=== PATIENT | female | born 1990 | race African-American/Black ===

== ENCOUNTER 2016-12-21 19:05 | Emergency (ER) | payer OTHER ==
[2016-12-21 19:09] VITALS: BP 129/70; PULSE 74; TEMP 98; BMI 24.9
--- NOTE | 2016-12-21 20:03 | PDOC ---
[id number] CYST/PAIN, ACUTE Past History - Past Medical History Allergies/Adverse Reactions: Allergies Allergy/AdvReac Type Severity Reaction Status Date / Time No Known Allergies Allergy Verified 12/21/16 19:06 Home Medications: Ambulatory Orders NK [No Known Home Medication] 04/12/15 - Psycho/Social/Smoking Cessation Hx Anxiety: No Suicidal Ideation: No Smoking History: Never smoked Have you smoked in the past 12 months: No Information on smoking cessation initiated: No Hx Alcohol Use: No Drug/Substance Use Hx: No Substance Use Type: None *Physical Exam - Vital Signs Last Vital Signs Temp Pulse Resp BP Pulse Ox 98 F 74 18 129/70 100 12/21/16 19:07 12/21/16 19:07 12/21/16 19:07 12/21/16 19:07 12/21/16 19:07 ED Treatment Course - LABORATORY CBC & Chemistry Diagram: 12/21/16 20:31 12/21/16 20:31 Medical Decision Making - Medical Decision Making 12/23/16 03:51 please note this pt was seen assessed and managed by nurse practitioner and I agree with his assessment and management of this case *DC/Admit/Observation/Transfer Diagnosis at time of Disposition: Abdominal pain - Discharge Dispostion Disposition: HOME Condition at time of disposition: Unchanged/Unknown - Patient Instructions Printed Discharge Instructions: DI for Abdominal Pain-Adult Additional Instructions: Follow up with your primary care provider as needed. If you change your mind return for further evaluation. Print Language: MONTSERRATIAN - Post Discharge Activity Work/School Note: Back to Work
[2016-12-21 20:25] LABS: URINE APPEARANCE CLEAR; URINE BILIRUBIN NEGATIVE (NEGATIVE); URINE BLOOD NEGATIVE (NEGATIVE); URINE COLOR STRAW; URINE GLUCOSE (UA) NEGATIVE (NEGATIVE); URINE KETONE NEGATIVE (NEGATIVE); URINE LEUK ESTERASE NEGATIVE (NEGATIVE); URINE NITRITE NEGATIVE (NEGATIVE); URINE PROTEIN NEGATIVE (NEGATIVE); URINE UROBILINOGEN NEGATIVE E.U./dl (0.2-1.0)
--- NOTE | 2016-12-21 20:27 | PDOC ---
History of Present Illness - General Chief Complaint: Pain Stated Complaint: CYST/PAIN, ACUTE Time Seen by Provider: 12/21/16 20:06 History Source: Patient Exam Limitations: No Limitations - History of Present Illness Travel History: No Initial Comments: 12/21/16 20:22 26yo Female patient w/ PmHx: Vacuum assisted () presents to ED with multiple complaints of Cyst to left wrist and right lower pelvic pain which began at 5pm today. Patient states having [facility] She reports LNMP: December 01 (Mirena ). Denies n/v/d, fever, change in appetite, CP, Back pain, Diff breathing or any other complaints at this time. PCP- None. Timing/Duration: reports: constant Quality: reports: moderate, sharpness Abdominal Pain Onset Location: reports: RUQ Pain Radiation: reports: no radiation Activities at Onset: reports: none Treatment Prior to Arrive: worse with: analgesics, antacids, cold pack, heat, laxative, enema, other Aggravating Factors: worse with: None, Defecation, Eating, Emotional upset, Exertion, Cataract, Movement, Voiding, Change in position Alleviating Factors: worse with: None, Belching, Shallow Breathing, Defecation, Eating, Holding Breath, Passing Gas, Change in Position, Rest, Voiding, Vomiting Past History - Travel Traveled outside of the country in the last 30 days: No Close contact w/someone who was outside of country & ill: No - Past Medical History Allergies/Adverse Reactions: Allergies Allergy/AdvReac Type Severity Reaction Status Date / Time No Known Allergies Allergy Verified 12/21/16 19:06 Home Medications: Ambulatory Orders NK [No Known Home Medication] 04/12/15 - Psycho/Social/Smoking Cessation Hx Anxiety: No Suicidal Ideation: No Smoking History: Never smoked Have you smoked in the past 12 months: No Information on smoking cessation initiated: No Hx Alcohol Use: No Drug/Substance Use Hx: No Substance Use Type: None Review of Systems - Review of Systems Able to Perform ROS?: Yes Is the patient limited Icelandic proficient: No Constitutional: No: Chills, Fever, Loss of Appetite, Malaise Respiratory: No: Cough, Orthopnea, Shortness of Breath, Stridor, Wheezing Cardiac (ROS): No: Chest Pain, Lightheadedness, Palpitations, Syncope, Chest Tightness ABD/GI: Yes: Abdominal cramping (Right pelvic region). No: Diarrhea, Nausea, Poor Appetite, Poor Fluid Intake, Rectal Bleeding, Vomiting : No: Dysuria, Discharge, Frequency, Flank Pain, Hematuria, Pain, Urgency Musculoskeletal: No: Back Pain Integumentary: No: Bruising, Erythema, Pruritus, Rash, Sweating Neurological: No: Headache, Numbness, Seizure, Weakness, Ataxia, Dizziness All Other Systems: Reviewed and Negative *Physical Exam - Vital Signs Last Vital Signs Temp Pulse Resp BP Pulse Ox 98 F 74 18 129/70 100 12/21/16 19:07 12/21/16 19:07 12/21/16 19:07 12/21/16 19:07 12/21/16 19:07 - Physical Exam General Appearance: Yes: Nourished, Appropriately Dressed. No: Apparent Distress, Mild Distress, Moderate Distress, Severe Distress Neck: positive: Trachea midline, Normal Thyroid, Supple. negative: Decreased range of motion, Stridor, Lymphadenopathy (R), Lymphadenopathy (L) Respiratory/Chest: positive: Lungs Clear, Normal Breath Sounds. negative: Chest Tender, Respiratory Distress, Accessory Muscle Use, Labored Respiration, Rapid RR, Rhonchi, Stridor, Wheezing Cardiovascular: positive: Regular Rhythm, Regular Rate. negative: Edema, JVD, Murmur Gastrointestinal/Abdominal: positive: Normal Bowel Sounds, Tender, Soft, Tenderness. negative: Distended, Guarding, Rebound (Right pelvic region on deep palpation) Musculoskeletal: positive: Normal Inspection. negative: CVA Tenderness Extremity: positive: Normal Capillary Refill, Normal Inspection, Normal Range of Motion Integumentary: positive: Normal Color, Dry, Warm Neurologic: positive: lead esthetician II-XII NML intact, Fully Oriented, Alert, Normal Mood/ Affect, Normal Response, Motor Strength 5/5 ED Treatment Course - LABORATORY CBC & Chemistry Diagram: 12/21/16 20:31 12/21/16 20:31 Progress Note - Progress Note Progress Note: Patient states she is unable to wait for her results. She reports she has work in the morning and needs to leave. Patient stated if her symptoms become severe she will return but needs to go at this time. Note: CMP machine is down during this time per lab. *DC/Admit/Observation/Transfer Diagnosis at time of Disposition: Abdominal pain Qualifiers: Abdominal location: left lower quadrant Qualified Code(s): R10.32 - Left lower quadrant pain - Discharge Dispostion Disposition: HOME Condition at time of disposition: Unchanged/Unknown Admit: No - Patient Instructions Printed Discharge Instructions: DI for Abdominal Pain-Adult Additional Instructions: Follow up with your primary care provider as needed. If you change your mind return for further evaluation. Print Language: BURMESE - Post Discharge Activity Work/School Note: Back to Work
[2016-12-21 20:54] LABS: BASOPHIL 0.6 % (0-2.0); EOSINOPHIL 1.3 % (0-4.5); MCH 30.6 pg (25.7-33.7); MCHC 32.7 g/dl (32.0-36.0); MEAN CELL VOLUME 93.6 fl (80-96); MEAN PLT VOLUME 8.5 fl (7.5-11.1); NEUTROPHILS 50.3 % (42.8-82.8); PLATELET COUNT 329 K/MM3 (134-434); RDW 13.4 % (11.6-15.6); WHITE BLOOD COUNT 7.9 K/mm3 (4.0-10.0)
[2016-12-21 23:26] LABS: ALBUMIN 3.9 g/dl (3.4-5.0); ALK PHOS 99 U/L (45-117); AMYLASE 71 U/L (25-115); ANION GAP 10 (8-16); BILIRUBIN,TOTAL 0.3 mg/dL (0.2-1.0); CALCIUM 9.5 mg/dL (8.5-10.1); CO2 25 mmol/L (21-32); COCKROFT - GAULT 127.5595; CREATININE 0.7 mg/dL (0.55-1.02); GLUCOSE,RANDOM 99 mg/dL (74-106); SGOT/AST 15 U/L (15-37); SGPT/ALT 17 U/L (12-78); TOT PROT 7.6 g/dl (6.4-8.2)
== END 2016-12-21 23:08 | disposition home or self-care (01) ==
LOC: JER 19:05
DX: R10.32 Left lower quadrant pain (principal)
CPT/HCPCS: 36415; 80053; 81003; 82150; 83690; 84703; 85025; 87086; 87491; 87591; 99283-25

== ENCOUNTER 2016-12-25 17:21 | Emergency (ER) | payer OTHER ==
[2016-12-25 17:35] VITALS: BP 120/61; PULSE 80; TEMP 98.1; BMI 24.9
--- NOTE | 2016-12-25 19:47 | PDOC ---
History of Present Illness - General Chief Complaint: Pain Stated Complaint: LOWER ABD PAIN History Source: Patient Exam Limitations: No Limitations - History of Present Illness Travel History: No Initial Comments: 12/25/16 19:45 26-year-old female without any past medical hx presents to the ER complaining lower right suprapubic discomfort 4 days without nausea/vomiting, feverchills , diarrhea, abdominal pains, flank pains, urinary symptoms: Frequency/urgency/ hesitancy, hematuria. Patient says she presented to the emergency department 4 days ago for ganglionic cyst to her left hand. She had blood work and U done which or benign.. Patient's discomfort is described as 2/10 dull nonradiating intermittent discomfort. There are no alleviating or exacerbating factors.\ LMP 12/01/2016 12/25/16 23:17 Timing/Duration: reports: intermittent Abdominal Pain Onset Location: reports: suprapubic Pain Radiation: reports: no radiation Past History - Past Medical History Allergies/Adverse Reactions: Allergies Allergy/AdvReac Type Severity Reaction Status Date / Time No Known Allergies Allergy Verified 12/25/16 17:30 Home Medications: Ambulatory Orders NK [No Known Home Medication] 04/12/15 Other medical history: none - Psycho/Social/Smoking Cessation Hx Anxiety: No Suicidal Ideation: No Smoking History: Never smoked Have you smoked in the past 12 months: No Information on smoking cessation initiated: No Hx Alcohol Use: No Drug/Substance Use Hx: No Substance Use Type: None Review of Systems - Review of Systems Able to Perform ROS?: Yes Comments:: 12/25/16 20:51 12/25/16 19:45 CONSTITUTIONAL: Absent: fever, chills, diaphoresis, generalized weakness, malaise, loss of appetite HEENT: Absent: rhinorrhea, nasal congestion, throat pain, throat swelling, difficulty swallowing, mouth swelling, ear pain, eye pain, visual Changes CARDIOVASCULAR: Absent: chest pain, loss of consciousness, palpitations, irregular heart rate, peripheral edema RESPIRATORY: Absent: cough, shortness of breath, dyspnea with exertion, orthopnea, wheezing, stridor, hemoptysis GASTROINTESTINAL: right supra pubic pain on deep palp Absent:abdominal distension, nausea, vomiting, diarrhea, constipation, melena, hematochezia GENITOURINARY: Absent: dysuria, frequency, urgency, hesitancy, hematuria, flank pain, genital pain MUSCULOSKELETAL: Absent: myalgia, arthralgia, joint swelling SKIN: Absent: rash, itching, pallor HEMATOLOGIC/IMMUNOLOGIC: Absent: easy bleeding, easy bruising, lymphadenopathy, frequent infections ENDOCRINE: Absent: unexplained weight gain, unexplained weight loss, heat intolerance, cold intolerance NEUROLOGIC: Absent: headache, focal weakness or paresthesias, dizziness, unsteady gait, seizure, mental status changes, bladder or bowel incontinence PSYCHIATRIC: Absent: anxiety, depression, suicidal or homicidal ideation, hallucinations. Is the patient limited Italian proficient: No *Physical Exam - Vital Signs Last Vital Signs Temp Pulse Resp BP Pulse Ox 98.1 F 80 18 120/61 100 12/25/16 17:31 12/25/16 17:31 12/25/16 17:31 12/25/16 17:31 12/25/16 17:31 - Physical Exam Comments: 12/25/16 19:45 GENERAL: Well developed, well nourished. Awake and alert. No acute distress. HEENT: Normocephalic, atraumatic. PERRLA, EOMI. No conjunctival pallor. Sclera are non- icteric. Moist mucous membranes. Oropharynx is clear. NECK: Supple. Full ROM. No JVD. Carotid pulses 2+ and symmetric, without bruits. No thyromegaly. No lymphadenopathy. CARDIOVASCULAR: Regular rate and rhythm. No murmurs, rubs, or gallops. Distal pulses are 2+ and symmetric. PULMONARY: No evidence of respiratory distress. Lungs clear to auscultation bilaterally. No wheezing, rales or rhonchi. ABDOMINAL: Soft. Non-tender. Non-distended. No rebound or guarding. No organomegaly. Normoactive bowel sounds. MUSCULOSKELETAL Normal range of motion at all joints. No bony deformities or tenderness. No CVA tenderness. EXTREMITIES: No cyanosis. No clubbing. No edema. No calf tenderness. SKIN: Warm and dry. Normal capillary refill. No rashes. No jaundice. NEUROLOGICAL: Alert, awake, appropriate. Cranial nerves 2-12 intact. No deficits to light touch and temperature in face, upper extremities and lower extremities. No motor deficits in the in face, upper extremities and lower extremities. Normoreflexic in the upper and lower extremities. Normal speech. Toes are down- going bilaterally. Gait is normal without ataxia. PSYCHIATRIC: Cooperative. Good eye contact. Appropriate mood and affect. 12/25/16 23:15 There is absolutely no abdominal pain on deep palpation. ED Treatment Course - LABORATORY CBC & Chemistry Diagram: 12/25/16 20:48 12/25/16 20:48 - RADIOLOGY Radiograph Interpretation: 12/25/16 20:57 transvaginal US *DC/Admit/Observation/Transfer Diagnosis at time of Disposition: Ovarian cyst - Discharge Dispostion Disposition: HOME Condition at time of disposition: Stable Admit: No - Referrals Referrals: Earl Cortez MD [Staff Physician] - - Patient Instructions Printed Discharge Instructions: Ovarian Cyst - Post Discharge Activity Work/School Note: Back to Work
[2016-12-25 21:24] LABS: BASOPHIL 0.4 % (0-2.0); EOSINOPHIL 1.3 % (0-4.5); MCH 30.6 pg (25.7-33.7); MCHC 32.9 g/dl (32.0-36.0); MEAN CELL VOLUME 92.8 fl (80-96); MEAN PLT VOLUME 9.1 fl (7.5-11.1); PLATELET COUNT 321 K/MM3 (134-434); RDW 13.5 % (11.6-15.6); WHITE BLOOD COUNT 9.2 K/mm3 (4.0-10.0)
[2016-12-25 21:26] LABS: URINE APPEARANCE CLEAR; URINE BILIRUBIN NEGATIVE (NEGATIVE); URINE BLOOD NEGATIVE (NEGATIVE); URINE COLOR LTYELLOW; URINE GLUCOSE (UA) NEGATIVE (NEGATIVE); URINE KETONE NEGATIVE (NEGATIVE); URINE LEUK ESTERASE NEGATIVE (NEGATIVE); URINE NITRITE NEGATIVE (NEGATIVE); URINE PROTEIN NEGATIVE (NEGATIVE); URINE UROBILINOGEN NEGATIVE E.U./dl (0.2-1.0)
[2016-12-25 21:49] LABS: ALK PHOS 105 U/L (45-117); ANION GAP 7 (8-16); BILIRUBIN,TOTAL 0.3 mg/dL (0.2-1.0); CALCIUM 9.4 mg/dL (8.5-10.1); CO2 28 mmol/L (21-32); CREATININE 0.9 mg/dL (0.55-1.02); GLUCOSE,RANDOM 72 mg/dL (74-106); SGOT/AST 18 U/L (15-37); SGPT/ALT 19 U/L (12-78); TOT PROT 7.8 g/dl (6.4-8.2)
== END 2016-12-25 23:46 | disposition home or self-care (01) ==
LOC: JER 17:21
DX: N83.201 Unspecified ovarian cyst, right side (principal)
CPT/HCPCS: 36415; 76830-TC; 80053; 81003; 84703; 85025; 99281-25

== ENCOUNTER 2017-03-13 14:33 | Emergency (ER) | payer OTHER ==
[2017-03-13 14:38] VITALS: BP 125/68; PULSE 77; TEMP 98.1; BMI 24.9
--- NOTE | 2017-03-13 15:04 | PDOC ---
History of Present Illness - General Chief Complaint: Pain Stated Complaint: RT PELVIC PAIN Time Seen by Provider: 03/13/17 15:03 - History of Present Illness Initial Comments: 26 year old female with PMH of recent IUD placement with history of right ovarian cyst presenting with bilateral pelvic pain. The bilateral pelvic pain started two weeks ago and has been consistent since. She describes the pain as a sharp non-radiating pain that has no exacerbating or relieving factors. Her LMP was 03/01/17 but was only a slight episode of spotting. She is also admitting to some recent nausea with nipple tenderness. She denies vaginal discharge, dysuria, or dyspareunia. Denies fevers, chills, nausea, vomiting, diarrhea, constipation, or other sick symptoms. 03/13/17 16:22 03/13/17 18:06 Past History - Past Medical History Allergies/Adverse Reactions: Allergies Allergy/AdvReac Type Severity Reaction Status Date / Time No Known Allergies Allergy Verified 03/13/17 14:35 Home Medications: Ambulatory Orders NK [No Known Home Medication] 04/12/15 - Psycho/Social/Smoking Cessation Hx Anxiety: No Suicidal Ideation: No Smoking History: Never smoked Have you smoked in the past 12 months: No Information on smoking cessation initiated: No Hx Alcohol Use: No Drug/Substance Use Hx: No Substance Use Type: None Review of Systems - Review of Systems Constitutional: No: Chills, Diaphoresis, Fever HEENTM: No: Eye Pain, Blurred Vision, Recent change in vision Respiratory: No: Cough, Orthopnea, Shortness of Breath Cardiac (ROS): No: Chest Pain, Edema ABD/GI: Yes: Nausea. No: Abdominal Distended, Constipated, Diarrhea, Vomiting : Yes: Pain. No: Burning, Dysuria, Discharge, Incontinence, Lesions *Physical Exam - Vital Signs Last Vital Signs Temp Pulse Resp BP Pulse Ox 98.1 F 77 18 125/68 100 03/13/17 14:36 03/13/17 14:36 03/13/17 14:36 03/13/17 14:36 03/13/17 14:36 - Physical Exam General Appearance: Yes: Nourished, Appropriately Dressed. No: Apparent Distress HEENT: positive: EOMI, JAMMIE, Normal Voice Neck: positive: Trachea midline, Normal Thyroid. negative: Tender Respiratory/Chest: positive: Lungs Clear, Normal Breath Sounds. negative: Chest Tender, Respiratory Distress Cardiovascular: positive: S1, S2. negative: Regular Rhythm, Regular Rate, Edema Female Pelvic Exam: positive: normal external exam. negative: discharge, lesions Gastrointestinal/Abdominal: positive: Normal Bowel Sounds, Flat, Soft. negative : Tender Integumentary: positive: Normal Color, Dry, Warm Neurologic: positive: Fully Oriented, Alert, Normal Mood/Affect, Normal Response Medical Decision Making - Medical Decision Making 26 year old female with PMH of small right ovarian cyst presenting with bilateral pelvic pain for the past two weeks that has been consistent most concerning for pregnanyc, new ovarian cysts vs. cystitis/ urethritis. Not tender on external pelvic exam with normal appearing external vagina. Not likely STI. Will check UA, Upreg, and transvaginal us. 03/13/17 16:49 03/13/17 16:50 UA and Upregg negative with TVU pending. 03/13/17 18:06 TVU pending but patient would like to leave, so will call patient with results on follow up and DC home currently. Her number is [phone] 03/13/17 18:13 *DC/Admit/Observation/Transfer Diagnosis at time of Disposition: Pelvic pain - Discharge Dispostion Disposition: HOME Condition at time of disposition: Improved Admit: No - Patient Instructions Additional Instructions: You were seen for pain in your pelvis. We did some tests on you and found that you were not and do not have an infection of your urine. We will call you with the results of your ultrasound. We will discuss reasons to return over the phone when the final results return. - Post Discharge Activity Work/School Note: Back to Work - Attestations Physician Attestion: 03/13/17 18:08 I, Dr. Corky Borrego, attest that this document has been prepared under my direction and personally reviewed by me in its entirety. I further attest, that it accurately reflects all work, treatment, procedures and medical decision -making performed by me. 03/13/17 18:10
--- NOTE | 2017-03-13 15:30 | PDOC ---
Attending Attestation - Resident Resident Name: ElmoAnniedoriankelly - ED Attending Attestation I have performed the following: I have examined & evaluated the patient, The case was reviewed & discussed with the resident, I agree w/resident's findings & plan, Exceptions are as noted - HPI HPI: 03/13/17 15:29 27-year-old female patient with history of ovarian cysts, IUD placement presents with one week of intermittent low intensity lower abdominal pain. Patient reports that this feels like her prior cysts but to a lesser intensity. The patient was seen in November and was diagnosed with an ovarian cyst and discharge. She reports that her periods are irregular since her Mirena was placed. Denies dysuria, vaginal bleeding or vaginal discharge. She took a prexy test at home which was negative. Came into the ED for further evaluation. - Physicial Exam PE: 03/13/17 15:29 GENERAL: Awake, alert, and fully oriented, in no acute distress. HEAD: No signs of trauma EYES: PERRLA, EOMI, sclera anicteric, conjunctiva clear ENT: Auricles normal inspection, hearing grossly normal, nares patent, oropharynx clear without exudates. NECK: Normal ROM, supple, no lymphadenopathy, JVD, or masses LUNGS: Breath sounds equal, clear to auscultation bilaterally. No wheezes, and no crackles HEART: Regular rate and rhythm, normal S1 and S2, no murmurs, rubs or gallops ABDOMEN: Soft, nontender, normoactive bowel sounds. No guarding, no rebound. No masses EXTREMITIES: Normal range of motion, no edema. No clubbing or cyanosis. No cords, erythema, or tenderness NEUROLOGICAL: Cranial nerves II through XII grossly intact. Normal speech, normal gait SKIN: Warm, Dry, normal turgor, no rashes or lesions noted. - Medical Decision Making 03/13/17 15:30 Vital Signs Temp Pulse Resp BP Pulse Ox 98.1 F 77 18 125/68 100 03/13/17 14:36 03/13/17 14:36 03/13/17 14:36 03/13/17 14:36 03/13/17 14:36 I suspect the patient is likely having ovarian cyst. Low clinical evidence for ovarian torsion. Patient reports a low-grade intermittent pain. No nausea or vomiting. We'll rule out cystitis. We'll obtain a transvaginal ultrasound. If workup is negative, the patient can be discharged follow-up with [facility] RE[facility].
[2017-03-13 15:41] LABS: URINE APPEARANCE CLEAR; URINE BILIRUBIN NEGATIVE (NEGATIVE); URINE BLOOD NEGATIVE (NEGATIVE); URINE COLOR LTYELLOW; URINE GLUCOSE (UA) NEGATIVE (NEGATIVE); URINE KETONE NEGATIVE (NEGATIVE); URINE LEUK ESTERASE NEGATIVE (NEGATIVE); URINE NITRITE NEGATIVE (NEGATIVE); URINE PROTEIN NEGATIVE (NEGATIVE); URINE UROBILINOGEN NEGATIVE mg/dL (0.2-1.0)
== END 2017-03-13 18:15 | disposition home or self-care (01) ==
LOC: JER 14:33
DX: R10.2 Pelvic and perineal pain (principal)
CPT/HCPCS: 76830-TC; 81003; 84703; 87086; 99282-25